=== PATIENT | female | born 1960 | race Caucasian/White ===

== ENCOUNTER → 2017-02-18 | Outpatient (CLI) | payer OTHER ==
[~2017-02-18] MED LIST: NAPROSYN500 MG PO; TRAMADOL HCL50 MG PO
== END | disposition home or self-care (01) ==
LOC: CDC 12:58
DX: I49.9 Cardiac arrhythmia, unspecified (principal); R94.31 Abnormal electrocardiogram [ECG] [EKG]
CPT/HCPCS: 93000

== ENCOUNTER 2017-02-25 10:48 | Inpatient (IN) | payer OTHER ==
[~2017-02-25] VITALS: Ht 165.1 cm; Wt 104.3 kg
[2017-03-14] MEDS ORDERED: JANUVIA100 MG PO (09:02)
[2017-03-14] MEDS ORDERED: INVOKANA100 MG PO (09:02)
[2017-03-14] MEDS ORDERED: SERTRALINE HCL50 MG PO (10:37)
[2017-03-14] MEDS ORDERED: SIMVASTATIN40 MG PO (10:37)
[2017-03-14] MEDS ORDERED: HYZAAR 50-121 TABLET PO (10:38)
[2017-04-30] MEDS ORDERED: JANUMET XR 1001 EACH PO (11:41)
[2017-04-30] MEDS ORDERED: PRILOSEC20 MG PO (12:00)
[2017-05-01 05:57] VITALS: BP 135/69
[2017-05-01 06:52] LABS: POINT-OF-CARE METER ID UU13113694
[2017-05-01 09:52] LABS: POINT-OF-CARE METER ID UU13113675
[2017-05-01 14:24] VITALS: BP 153/72
[2017-05-01 16:45] LABS: HEMATOCRIT 47.3 % (36.0-46.0); MCHC 33.2 G/DL (30.0-36.0); MCV 93.5 FL (83-99); MEAN PLAT.VOLUME 9.3 uM^3 (9.5-12.4); PLATELET COUNT 245 K/uL (156-360); RBC DIS.WIDTH-CV 13.9 % (11.8-14.6); RBC DIS.WIDTH-SD 47.9 % (39-53); RED BLOOD COUNT 5.06 M/uL (3.80-5.20); WHITE BLOOD COUNT 19.7 K/uL (4.1-10.2)
[2017-05-01 17:08] LABS: ANION GAP 11 MEQ/L (2-14); CHLORIDE 103 MEQ/L (99-109); GFR ESTIMATE (CALCULATED) > 59 mL/min/; GLUCOSE 257 mg/dL (70-99); POTASSIUM 3.9 MEQ/L (3.7-5.4); SAMPLE HEMOLYSIS CHECK 0; SAMPLE ICTERIC CHECK 0; SAMPLE LIPEMIA CHECK 0; SODIUM 138 MEQ/L (136-147); UREA NITROGEN (BUN) 8 mg/dL (9-23)
[2017-05-01 18:33] LABS: POINT-OF-CARE METER ID UU14208750; POINT-OF-CARE USER ID PUTDRM
[2017-05-01 19:59] VITALS: BP 155/82
[2017-05-02] VITALS (7 sets, daily range): BP systolic 121–167; BP diastolic 61–88
[2017-05-02 01:17] LABS: POINT-OF-CARE METER ID UU14208750; POINT-OF-CARE USER ID 609231305
[2017-05-02 06:11] LABS: POINT-OF-CARE METER ID UU14162508; POINT-OF-CARE USER ID 609231305
[2017-05-02 07:47] LABS: HEMATOCRIT 43.9 % (36.0-46.0); MCH 30.4 PG (29.0-34.0); MCHC 32.8 G/DL (30.0-36.0); MCV 92.6 FL (83-99); MEAN PLAT.VOLUME 9.3 uM^3 (9.5-12.4); PLATELET COUNT 237 K/uL (156-360); RBC DIS.WIDTH-CV 13.5 % (11.8-14.6); RBC DIS.WIDTH-SD 46.4 % (39-53); RED BLOOD COUNT 4.74 M/uL (3.80-5.20); WHITE BLOOD COUNT 14.6 K/uL (4.1-10.2)
[2017-05-02 08:06] LABS: ANION GAP 9 MEQ/L (2-14); CHLORIDE 99 MEQ/L (99-109); GFR ESTIMATE (CALCULATED) > 59 mL/min/; GLUCOSE 213 mg/dL (70-99); SAMPLE HEMOLYSIS CHECK 0; SAMPLE ICTERIC CHECK 0; SAMPLE LIPEMIA CHECK 0; SODIUM 136 MEQ/L (136-147); UREA NITROGEN (BUN) 5 mg/dL (9-23)
[2017-05-02 08:10] LABS: POTASSIUM 4.7 MEQ/L (3.7-5.4)
[2017-05-02 11:33] LABS: POINT-OF-CARE METER ID UU14208750
[2017-05-02 17:24] LABS: POINT-OF-CARE METER ID UU14208750
[2017-05-02 21:30] LABS: POINT-OF-CARE METER ID UU14162508
[2017-05-03 03:53] VITALS: BP 143/78
[2017-05-03 06:42] LABS: POINT-OF-CARE METER ID UU14162508
[2017-05-03 07:10] VITALS: BP 146/82
[2017-05-03 07:19] LABS: HEMATOCRIT 40.8 % (36.0-46.0); MCH 30.8 PG (29.0-34.0); MCHC 34.1 G/DL (30.0-36.0); MCV 90.3 FL (83-99); MEAN PLAT.VOLUME 9.6 uM^3 (9.5-12.4); PLATELET COUNT 194 K/uL (156-360); RBC DIS.WIDTH-CV 13.4 % (11.8-14.6); RBC DIS.WIDTH-SD 44.4 % (39-53); RED BLOOD COUNT 4.52 M/uL (3.80-5.20); WHITE BLOOD COUNT 10.7 K/uL (4.1-10.2)
[2017-05-03 07:46] LABS: ANION GAP 9 MEQ/L (2-14); CHLORIDE 103 MEQ/L (99-109); GFR ESTIMATE (CALCULATED) > 59 mL/min/; GLUCOSE 244 mg/dL (70-99); POTASSIUM 3.3 MEQ/L (3.7-5.4); SAMPLE HEMOLYSIS CHECK 0; SAMPLE ICTERIC CHECK 0; SAMPLE LIPEMIA CHECK 0; SODIUM 138 MEQ/L (136-147); UREA NITROGEN (BUN) 8 mg/dL (9-23)
== END 2017-05-03 09:12 | disposition home or self-care (01) | DRG 743 ==
LOC: 2SOUTH → ENRESERV 04-30 21:32 → 2SOUTH 05-01 05:21 → ENRESERV 05-01 12:02 → 2SOUTH 05-01 12:11 → 2EAST 05-01 14:15 → 2SOUTH 05-01 14:34 → 2EAST 05-03 09:12
PROVIDERS: Obstetrics & Gynecology Gynecologic Oncology
DX: D25.9 Leiomyoma of uterus, unspecified (principal); N83.201 Unspecified ovarian cyst, right side; F17.210 Nicotine dependence, cigarettes, uncomplicated; E11.9 Type 2 diabetes mellitus without complications; E66.9 Obesity, unspecified; I10 Essential (primary) hypertension; Z68.30 Body mass index [BMI] 30.0-30.9, adult
CPT/HCPCS: 80048; 82948; 85027; 86900; 86901; 86920; 88307; 94640; 94799; J0330; J0360; J0690; J1170; J1650; J1815; J1885; J2405; J2710; J2765; J3010; J7120

== ENCOUNTER 2018-01-13 18:12 | Emergency (ER) | payer OTHER ==
[~2018-01-13] VITALS: Ht 167.6 cm; Wt 115.3 kg
[~2018-01-13 18:12] MED LIST changes: +HYZAAR 50-121 TABLET PO; +INVOKANA100 MG PO; +JANUMET XR 1001 EACH PO; +JANUVIA100 MG PO; +PRILOSEC20 MG PO; +SERTRALINE HCL50 MG PO; +SIMVASTATIN40 MG PO; +TRESIBA FL100 UNIT/1 SC
[2018-01-13 19:55] LABS: BASOPHIL (%) 0.8 % (0-1); BASOPHIL COUNT 0.1 K/uL (0-0.1); EOSINOPHIL (%) 2.6 % (0-5); EOSINOPHIL COUNT 0.3 K/uL (0-0.3); HEMATOCRIT 40.3 % (36.0-46.0); HEMOGLOBIN 12.8 G/DL (11.9-15.5); IMMATURE GRANULOCYTE (%) 0.9 % (0.0-0.7); LYMPHOCYTE (%) 28.9 % (15-42); LYMPHOCYTE COUNT 3.2 K/uL (1.0-2.8); MCH 26.9 PG (29.0-34.0); MCHC 31.8 G/DL (30.0-36.0); MCV 84.8 FL (83-99); MONOCYTE (%) 5.8 % (3-12); MONOCYTE COUNT 0.7 K/uL (0-0.8); NEUTROPHIL COUNT 6.8 K/uL (1.8-6.4); PLATELET COUNT 296 K/uL (156-360); RBC DIS.WIDTH-CV 15.6 % (11.8-14.6); RBC DIS.WIDTH-SD 47.8 % (39-53); RED BLOOD COUNT 4.75 M/uL (3.80-5.20); WHITE BLOOD COUNT 11.2 K/uL (4.1-10.2)
[2018-01-13 20:03] LABS: ALBUMIN 4.1 g/dL (3.2-4.8); CHLORIDE 104 mEq/L (99-109); POTASSIUM 4.1 mEq/L (3.7-5.4); SODIUM 137 mEq/L (136-147)
[2018-01-13 20:05] LABS: GLUCOSE 144 mg/dL (70-99); TOTAL PROTEIN 7.3 g/dL (6.4-8.3)
[2018-01-13 20:07] LABS: TOTAL BILIRUBIN 0.3 mg/dL (0.0-1.0)
[2018-01-13 20:09] LABS: ALKALINE PHOSPHATASE 131 IU/L (3-129); CREATININE 0.7 mg/dL (0.6-1.3); GFR ESTIMATE (CALCULATED) > 59 mL/min/
[2018-01-13 20:10] LABS: AST (GOT) 16 IU/L (2-34); UREA NITROGEN (BUN) 9 mg/dL (9-23)
[2018-01-13 20:11] LABS: DIRECT BILIRUBIN 0.1 mg/dL (0.0-0.3)
[2018-01-13 20:12] LABS: ALT (GPT) 20 IU/L (3-49); LIPASE 47 U/L (1.0-51.0)
[2018-01-13 20:35] LABS: BILIRUBIN NEGATIVE; BLOOD NEGATIVE; COLOR YELLOW ((YELLOW)); GLUCOSE (STRIP) NEGATIVE; KETONES NEGATIVE; LEUKOCYTES NEGATIVE; NITRITE NEGATIVE; PROTEIN (STRIP) NEGATIVE; SPECIFIC GRAVITY 1.013 (1.000-1.030); UROBILINOGEN 0.2 MG/DL (0.2-1.0)
[2018-01-13 20:42] LABS: APPEARANCE CLEAR ((CLEAR))
[2018-01-13] MEDS ORDERED: ZOFRAN ODT8 MG PO (21:39)
[2018-01-13] MEDS ORDERED: BENTYL20 MG PO (21:39)
[2018-01-13 22:13] VITALS: BP 122/84
== END 2018-01-13 22:13 | disposition home or self-care (01) ==
LOC: EME 18:12
PROVIDERS: Physician Assistant
DX: R10.11 Right upper quadrant pain (principal); K76.0 Fatty (change of) liver, not elsewhere classified; R73.9 Hyperglycemia, unspecified; E83.119 Hemochromatosis, unspecified; F17.200 Nicotine dependence, unspecified, uncomplicated; Z90.710 Acquired absence of both cervix and uterus; Z88.5 Allergy status to narcotic agent; Z88.6 Allergy status to analgesic agent
CPT/HCPCS: 76705; 80048; 80076; 81003; 82948; 83690; 85025; 93005; 99281; 99284; J1885